=== PATIENT | male | born 1995 | race Caucasian/White ===

== ENCOUNTER 2018-10-24 21:35 | Emergency (ER) | payer MEDICAID ==
[~2018-10-24] VITALS: Ht 190.5 cm; Wt 99.8 kg
[~2018-10-24 21:35] MED LIST: CRUTCH2 USE; Crutch1 EACH MISC; HYDACE5 PO; IBUP600 PO; Norco 5-325 Ta1 EACH PO
== END 2018-10-24 23:15 | disposition home or self-care (01) ==
LOC: ER 21:35
DX: S80.211A Abrasion, right knee, initial encounter (principal); S80.812A Abrasion, left lower leg, initial encounter; S80.811A Abrasion, right lower leg, initial encounter; Y04.8XXA Assault by other bodily force, initial encounter; F17.210 Nicotine dependence, cigarettes, uncomplicated
CPT/HCPCS: 73562-RT; 99283-25

== ENCOUNTER 2020-02-01 21:54 | Emergency (ER) | payer OTHER ==
[~2020-02-01] VITALS: Ht 190.5 cm; Wt 95.2 kg
[~2020-02-01 21:54] MED LIST changes: +Cleocin HCl300 MG PO; +IBUP800 PO
== END 2020-02-01 23:37 | disposition home or self-care (01) ==
LOC: ER 21:54
DX: S93.402A Sprain of unspecified ligament of left ankle, initial encounter (principal); Z88.0 Allergy status to penicillin; Z88.1 Allergy status to other antibiotic agents; F17.210 Nicotine dependence, cigarettes, uncomplicated; X50.1XXA Overexertion from prolonged static or awkward postures, initial encounter
CPT/HCPCS: 73610; 99283-25

== ENCOUNTER 2024-02-07 01:16 | Emergency (ER) | payer OTHER ==
[~2024-02-07] VITALS: Ht 190.5 cm; Wt 136.1 kg
[~2024-02-07 01:16] MED LIST changes: +CEFD300 PO
[2024-02-07 01:33] VITALS: BP 154/82
[2024-02-07] MEDS ORDERED: Ketorolac Tromethamine 15mg Vial IM ONE (01:55)
== END 2024-02-07 02:38 | disposition home or self-care (01) ==
LOC: ER 01:16
DX: S40.011A Contusion of right shoulder, initial encounter (principal); F17.220 Nicotine dependence, chewing tobacco, uncomplicated; V86.56XA Driver of dirt bike or motor/cross bike injured in nontraffic accident, initial encounter; Z88.0 Allergy status to penicillin; Z88.1 Allergy status to other antibiotic agents
CPT/HCPCS: 73030; 96372; 99283-25; J1885

== ENCOUNTER 2025-06-16 12:27 | Emergency (ER) | payer OTHER ==
[~2025-06-16] VITALS: Ht 190.5 cm; Wt 136.1 kg
[2025-06-16] MEDS ORDERED: NS 1,000 ML IV SCH (13:35)
[2025-06-16] MEDS ORDERED: Ketorolac Tromethamine 15mg Vial IV ONE (13:35)
[2025-06-16] MEDS ORDERED: Ondansetron HCl 2 MG / ML 2ML Vial IV ONE ×2 (13:35→19:40)
[2025-06-16 13:49] LABS: BASOPHILS ABSOLUTE AUTO 0.02 K/mm3 (0.00-0.23); BASOPHILS PERCENT AUTO 0 % (0-2); EOSINOPHILS ABSOLUTE AUTO 0.08 K/mm3 (0.00-0.68); EOSINOPHILS PERCENT AUTO 1 % (0-6); Hematocrit 48.4 % (37.0-53.0); Hemoglobin 16.8 g/dL (13.5-17.5); IMMATURE GRAN ABSOLUTE AUTO 0.06 K/mm3 (0.00-0.10); IMMATURE GRAN PERCENT AUTO 1 % (0-1); LYMPHOCYTES ABSOLUTE AUTO 1.82 K/mm3 (0.84-5.20); LYMPHOCYTES PERCENT AUTO 15 % (21-46); MONOCYTES ABSOLUTE AUTO 0.75 K/mm3 (0.16-1.47); MONOCYTES PERCENT AUTO 6 % (4-13); Mean Corpuscular HGB Conc 34.7 g/dL (31.5-36.5); Mean Corpuscular Volume 88 fL (80-100); NEUTROPHILS ABSOLUTE AUTO 9.54 K/mm3 (1.96-9.15); NEUTROPHILS PERCENT AUTO 78 % (41-73); NRBC ABSOLUTE 0.00 K/mm3 (0.00-0.02); NRBC Auto 0.0 /100 WBC (0.0-0.2); Platelet Count 341 K/mm3 (150-400); RDW Coefficient Variation 12.8 % (11.7-14.2); RDW Standard Deviation 41.9 fL (35.1-46.3)
[2025-06-16 14:09] LABS: Alanine Aminotransfer (ALT/SGP 100.0 U/L (12-78); Albumin, Blood 3.8 g/dL (3.4-5.0); Albumin/Globulin Ratio 0.8 (0.8-1.8); Anion Gap 9.0 mmol/L (3-11); Aspartate Aminotrans (AST/SGOT 47.0 U/L (12-37); Bilirubin, Total 0.4 mg/dL (0.1-1.0); Blood Urea Nitrogen 15.0 mg/dL (8-24); CO2, Blood 27.0 mmol/L (21-32); Calcium, Blood 9.3 mg/dL (8.5-10.1); Chloride, Blood 105.0 mmol/L (98-108); Creatinine, Blood 1.04 mg/dL (0.60-1.20); Globulin, Blood 4.7 g/dL (2.2-4.0); Glucose, Blood 128.0 mg/dL (70-99); Potassium, Blood 4.2 mmol/L (3.5-5.5); Sodium, Blood 137.0 mmol/L (136-145); Total Protein, Blood 8.5 g/dL (6.4-8.2)
[2025-06-16 14:59] LABS: Source, Urine Clean Catch
[2025-06-16 15:03] LABS: Color, Urine Yellow (P-Yellow); Glucose Qualitative, Urine Neg (Neg); Ketones, Urine 1+ (Neg); Leukocyte Esterase, Urine 1+ (Neg); Protein, Urine 3+ (Neg); Specific Gravity, Urine 1.030 (1.003-1.022); Urobilinogen, Urine 1+ (Normal)
[2025-06-16 15:12] LABS: Bilirubin, Urine 1+ (Neg); White Blood Cells, Urine 0-2 /hpf (0-5)
[2025-06-16] MEDS ORDERED: CefTRIAXone Sodium 1,000 MG in NS 100 ML IV ONE (19:40)
[2025-06-16] MEDS ORDERED: HYDROmorphone HCl/Pf 1MG SYR IV ONE (19:40)
[2025-06-16] MEDS ORDERED: RX Prepack 6 Tabs Oxycodone 5mg UD ONE (20:10)
[2025-06-16] MEDS ORDERED: CEPH500 PO (20:14)
[2025-06-16] MEDS ORDERED: ONDA4ODT MM (20:14)
[2025-06-16] MEDS ORDERED: RX Prepack 2 Tabs Ondansetron ODT 4MG UD ONE (20:15)
[2025-06-16 20:30] VITALS: BP 133/72
== END 2025-06-16 20:33 | disposition home or self-care (01) ==
LOC: ER 12:27
PROVIDERS: Medical Genetics Clinical Biochemical Genetics; Student in an Organized Health Care Education/Training Program
DX: N13.2 Hydronephrosis with renal and ureteral calculous obstruction (principal); N30.00 Acute cystitis without hematuria; F17.220 Nicotine dependence, chewing tobacco, uncomplicated; Z88.0 Allergy status to penicillin; Z88.1 Allergy status to other antibiotic agents
CPT/HCPCS: 74177; 80053; 81001; 83690; 85025; 96361; 96365-59; 96375; 96376; 99284-25; A9270; J0696; J1171; J1885; J2405; J7030; Q9967